=== PATIENT | female | born 1975 | race Two or more races ===

== ENCOUNTER 2019-06-12 21:23 | Emergency (ER) | payer OTHER ==
[~2019-06-12] VITALS: Ht 157.5 cm; Wt 68.0 kg
--- NOTE | 2019-06-12 21:37 | NUR ---
[facility]PA FOR C/O N/V SINCE 99. PT A, OX3. VERBALLY REOPONSIVE. NOTED W/ CAPPED TRACHE.BREATHING EVENLY. NO SOB AT THIS TIME. PT WAS PLACED ON A MONITOR. WILL CONT TO MONITOR
[2019-06-12] MEDS ORDERED: ONDANSETRON HCL/PF 4 MG/2 ML VIAL ONE (21:41)
[2019-06-12 21:59] LABS: BASOPHILS # (AUTO) 0.3 /CMM (0.0-0.2); BASOPHILS % (AUTO) 2.8 % (0.0-2.0); EOSINOPHILS % (AUTO) 0.7 % (0.0-6.0); HEMATOCRIT 28 % (33-45); HEMOGLOBIN 8.7 g/dL (11.5-14.8); LYMPHOCYTES # (AUTO) 1.4 /CMM (0.8-4.8); LYMPHOCYTES % (AUTO) 13.6 % (20.0-44.0); MEAN CORPUSCULAR HGB CONC 32 g/dl (31.0-36.0); MEAN CORPUSCULAR VOLUME 85 fL (82-100); MONOCYTES # (AUTO) 0.4 /CMM (0.1-1.30); MONOCYTES % (AUTO) 3.4 % (2.0-12.0); NEUTROPHILS # (AUTO) 8.2 /CMM (1.8-8.9); NEUTROPHILS % (AUTO) 79.5 % (43.0-81.0); PLATELET COUNT (AUTO) 528 /CMM (150-450); RED BLOOD CELL COUNT(AUTO) 3.23 MIL/uL (4.0-5.2); WHITE BLOOD COUNT (AUTO) 10.4 K/uL (4.3-11.0)
[2019-06-12] MEDS ORDERED: IV NS 0.9% 500 ML BAG IV ONE (22:00)
[2019-06-12] MEDS ORDERED: ONDANSETRON HCL/PF 4 MG/2 ML VIAL IVP ONE (22:00)
[2019-06-12 22:06] LABS: CALCIUM, SERUM 9.7 mg/dL (8.5-10.1); CREATININE 1.1 mg/dL (0.6-1.3); POTASSIUM 3.6 mmol/L (3.5-5.1)
[2019-06-12 22:12] LABS: ALBUMIN 3.1 g/dL (3.4-5.0); BILIRUBIN,TOTAL 0.2 mg/dL (0.2-1.0); TOTAL PROTEIN, SERUM 8.3 g/dL (6.4-8.2)
--- NOTE | 2019-06-12 22:14 | NUR ---
PT LEFT FOR CT
[2019-06-12] MEDS ORDERED: IOHEXOL-350 100 ML VIAL IV ONE (22:18)
[2019-06-12] MEDS ORDERED: MORPHINE SULFATE INJ 2 MG/ML DISP.SYRIN IV ONE (22:30)
[2019-06-12] MEDS ORDERED: FURO-145 PO (22:33)
[2019-06-12] MEDS ORDERED: METO25TA6 PO (22:33)
[2019-06-12] MEDS ORDERED: FERR325T23 PO (22:33)
[2019-06-12] MEDS ORDERED: IPRA3AMP23 IH (22:33)
[2019-06-12] MEDS ORDERED: [UNRECOGNIZED DRUG - CODE] SQ (22:33)
[2019-06-12] MEDS ORDERED: DULO60CA45 PO (22:33)
[2019-06-12] MEDS ORDERED: ASPI-1169 PO (22:33)
[2019-06-12] MEDS ORDERED: ATOR40TA GT (22:33)
[2019-06-12] MEDS ORDERED: ACYC400T PO (22:33)
[2019-06-12] MEDS ORDERED: PREG200C PO (22:33)
[2019-06-12] MEDS ORDERED: INSU100V7 SQ (22:33)
[2019-06-12] MEDS ORDERED: ACET1OOV6 HHN (22:33)
[2019-06-12] MEDS ORDERED: SEVE800T7 PO (22:33)
[2019-06-12] MEDS ORDERED: FAMO20TA8 PO (22:33)
[2019-06-12] MEDS ORDERED: METO-295 PO (22:33)
[2019-06-12] MEDS ORDERED: CALC667C6 PO (22:33)
[2019-06-12] MEDS ORDERED: DOCU-141 PO (22:33)
[2019-06-12] MEDS ORDERED: MORPHINE SULFATE INJ 4 MG/ML DISP.SYRIN ONE (22:36)
[2019-06-12] MEDS ORDERED: METOCLOPRAMIDE HCL 10 MG/2 ML VIAL ONE (22:59)
[2019-06-12] MEDS ORDERED: METOCLOPRAMIDE HCL 10 MG/2 ML VIAL IV ONE (23:00)
[2019-06-12 23:11] LABS: APPEARANCE,URINE Clear (CLEAR); BILIRUBIN,URINE MODERATE (NEGATIVE); BLOOD, URINE Moderate Ery/uL (NEGATIVE); COLOR,URINE Yellow (YELLOW); KETONES,URINE 15 (NEGATIVE); LEUKOCYTE ESTERASE ,URINE Negative (NEGATIVE); NITRITE, URINE Negative (NEGATIVE); PH,URINE 5.5 (5.0-8.0); PROTEIN,URINE >=300 mg/dl (NEGATIVE); UGLUCOSE Negative (NEGATIVE); UROBILINOGEN,URINE 0.2 EU/dL (0.2)
[2019-06-12 23:12] LABS: LYMPHOCYTES % (MANUAL) 10 % (16-48); MONOCYTES % (MANUAL) 5 % (0-11.0); NEUTROPHILS % (MANUAL) 85 (42-76)
--- NOTE | 2019-06-12 23:40 | NUR ---
CALLED PT'S SURGEON, DR. GRISELDA IDCKENS . DEPOSIT CLERK DR. BARBRA BUNDY TO CALL BACK
--- NOTE | 2019-06-12 23:45 | NUR ---
DR. CYR ON THE PHONE WITH DR. BELLE
--- NOTE | 2019-06-13 00:07 | NUR ---
CALLED [facility] FOR TRANSPORTATION. ETA [phone]. TRIP #[id number]
--- NOTE | 2019-06-13 00:16 | NUR ---
PT NOTED W/ HIGH HR AND BP . PT IS RECEIVING METOPROLOL PO AT THE FACILITY. MADE AWARE W/ A NEW ORDER FOR METOPROLOL IV. PT REMAINED ON HEART MOITORING.
[2019-06-13] MEDS ORDERED: METOPROLOL TARTRATE INJ 5 MG/5 ML AMPUL ONE (00:19)
[2019-06-13] MEDS ORDERED: METOPROLOL TARTRATE INJ 5 MG/5 ML AMPUL IV ONE (00:30)
[2019-06-13 00:38] LABS: BACTERIA,URINE Few /HPF (None Seen); SQUAMOUS EPITHELIAL CELL,UR Few /HPF (None Seen); URINE AMORPHOUS URATE Moderate /HPF (None Seen)
--- NOTE | 2019-06-13 01:27 | NUR ---
PT NOTED W/ ANOTHER EPISODE OF VOMITING AND BP STILL REMAINED HIGH. SPOKE TO DR CYR W/ A NEW ORDER FOR COMPAZINE AND CLONIDINE.
[2019-06-13] MEDS ORDERED: PROCHLORPERAZINE EDISYLATE 10 MG/2 ML VIAL IVP ONE (01:30)
[2019-06-13] MEDS ORDERED: CLONIDINE HCL 0.1 MG TABLET PO ONE (01:30)
[2019-06-13] MEDS ORDERED: CLONIDINE HCL 0.1 MG TABLET ONE (01:32)
[2019-06-13] MEDS ORDERED: PROCHLORPERAZINE EDISYLATE 10 MG/2 ML VIAL ONE (01:32)
--- NOTE | 2019-06-13 01:41 | NUR ---
MEDICATED ORDERED. WILL CONT TO MONITOR ,
--- NOTE | 2019-06-13 02:20 | NUR ---
CALLED [facility] FOR UPDATE, ETA 10MIN
--- NOTE | 2019-06-13 02:27 | NUR ---
REPORT GIVEN TO JENNIFER AT THE FACILITY
--- NOTE | 2019-06-13 02:55 | NUR ---
REPORT GIVEN TO leather cartridge belt maker FROM [facility]
--- NOTE | 2019-06-13 03:01 | NUR ---
PT WAS PICKED UP BY [facility] AND TRANSFERRED BACK TO THE FACILITY.
[2019-06-13 03:06] VITALS: BP 170/101
== END 2019-06-13 03:08 | disposition home or self-care (01) ==
LOC: ER 21:28
DX: R11.10 Vomiting, unspecified (principal); R10.84 Generalized abdominal pain; I10 Essential (primary) hypertension; E10.9 Type 1 diabetes mellitus without complications; Z93.0 Tracheostomy status; Z88.0 Allergy status to penicillin; Z91.018 Allergy to other foods; Z79.899 Other long term (current) drug therapy; Z79.84 Long term (current) use of oral hypoglycemic drugs; Z79.82 Long term (current) use of aspirin; Z79.4 Long term (current) use of insulin
CPT/HCPCS: 36415; 71275; 74177; 80048; 80076; 81001; 83690; 85025; 93005; 96361; 96374; 96375 ×2; 99285; J0780; J2270; J2405; J2765; J3490; J7030; J7040; Q9967; 81000-TC; 87086-TC